=== PATIENT | male | born 1980 | race Two or more races ===

== ENCOUNTER 2023-09-27 20:35 | Emergency (ER) | payer MEDICAID ==
[~2023-09-27] VITALS: Ht 165.1 cm; Wt 90.7 kg
[2023-09-27 20:40] VITALS: TEMP 98
[2023-09-28 01:51] VITALS: BP 141/95; O2SAT 99
== END 2023-09-28 01:53 | disposition home or self-care (01) ==
LOC: ER 20:46
DX: F10.129 Alcohol abuse with intoxication, unspecified (principal); I10 Essential (primary) hypertension; Y90.9 Presence of alcohol in blood, level not specified